=== PATIENT | male | born 1995 | race Caucasian/White ===

== ENCOUNTER 2020-03-30 18:18 | Emergency (ER) | payer SELFPAY ==
--- NOTE | 2020-03-30 18:41 | ED.DENTAL ---
HPI - Dental/Oral General Chief complaint: Dental/Oral Stated complaint: tooth pain Time Seen by Provider: 03/30/20 18:41 Source: patient and RN notes reviewed History of Present Illness HPI Narrative: Patient is a 25-year-old male that presents the urgent care with complaints of upper right dental pain. Patient states that it started last night and he believes he may have broke off the tooth . Patient states that he took 1 dose of his girlfriends old amoxicillin prescription as well as some Tylenol today. Patient states that it did seem to dull the pain a little bit but the pain is still there. Patient denies of any known swelling, fever, nausea, vomiting. No other acute complaints. No acute distress noted. Patient read the plan of care. Related Data Allergies Allergy/AdvReac Type Severity Reaction Status Date / Time amphetamine AdvReac Unknown Fatigued Verified 03/30/20 18:36 dextroamphetamine AdvReac Unknown Fatigued Verified 03/30/20 18:36 Review of Systems Review of Systems: Narrative: CONSTITUTIONAL: Denies fever, chills, or sweats. EYES: Denies visual changes, redness, or discharge. ENT: Denies rhinorrhea, congestion, sore throat, or otalgia. Reports of upper right dental pain CARDIOVASCULAR: Denies chest pain, palpitations, or edema. RESPIRATORY: Denies cough or dyspnea. GASTROINTESTINAL: Denies abdominal pain, nausea, vomiting, or diarrhea. GENITOURINARY: Denies dysuria or hematuria. SKIN: Denies rash or itching. MUSCULOSKELETAL: Denies back pain, joint pain, or myalgia. NEUROLOGIC: Denies headache, numbness, or weakness. All other systems reviewed are negative, except as documented in HPI. PMFSH Social History Social History (Updated 11/15/19 @ 13:41 by CAMMY Caballero) Smoking status: Current every day smoker Tobacco type: cigarettes Alcohol intake: current Substance use: never Gender identity (if verbalized by the patient): Male Comments At the time of my signature, I reviewed and agree with the nursing past medical, surgical, social, and family history. There is no relevant family history pertinent to the patient complaint. Exam Narrative: Exam Narrative: GENERAL: This is a well-nourished, well-developed patient, in no apparent distress. HEAD: normocephalic, atraumatic. EYES: PERRL. Sclera clear/white. Vision is grossly intact. EARS: External ears normal NOSE: External nose normal with no obvious nasal discharge THROAT: Mucous membranes moist, posterior pharynx clear. Posterior cusp avulsion fracture noted to tooth #2 without any obvious surrounding erythema or abscess NECK: Neck supple, non-tender without lymphadenopathy, masses or thyromegaly. SKIN: warm, intact with no suspicious lesions or rash, good texture and turgor. NEURO: awake, alert, and oriented to person, place and time. There were no obvious focal neurologic abnormalities. EXTREMITIES: No clubbing, cyanosis, or edema. Course Vital Signs Vital signs: Vital Signs Temperature 98.0 F 03/30/20 18:42 Pulse Rate 77 03/30/20 18:42 Respiratory Rate 16 03/30/20 18:42 Blood Pressure 141/78 H 03/30/20 18:42 Pulse Oximetry 100 03/30/20 18:42 Temperature 98.0 F 03/30/20 18:42 Pulse Rate 77 03/30/20 18:42 Respiratory Rate 16 03/30/20 18:42 Blood Pressure 141/78 H 03/30/20 18:42 Pulse Oximetry 100 03/30/20 18:42 Reviewed?patient is informed that they may have pre-hypertension or hypertension based on a blood pressure reading in the department. I recommend the patient call the primary care provider listed on their discharge instructions or a physician of their choice this week to arrange follow-up for further evaluation of possible pre-hypertension or hypertension. MDM - Dental/Oral MDM Narrative Medical decision making narrative: At this time, no necessary need for antibiotic treatment. Pain is likely caused from nerve exposure and pain medicine does not typically help that type of pain. Therefore pat
[2020-03-30 18:42] VITALS: BP 141/78; PULSE 77; RESP 16; TEMP 36.7; O2SAT 100
== END 2020-03-30 18:59 | disposition home or self-care (01) ==
PROVIDERS: Emergency Provider Nurse Practitioner Family
DX: K03.81 Cracked tooth (principal); F17.210 Nicotine dependence, cigarettes, uncomplicated
CPT/HCPCS: 99213; G0463

== ENCOUNTER 2020-05-02 16:12 | Emergency (ER) | payer SELFPAY ==
[2020-05-02 16:14] VITALS: BP 136/77; PULSE 95; RESP 18; TEMP 37.6; O2SAT 100
[2020-05-02] MEDS: TETANUS,DIPHTHERIA,AC PERTUSSIS ADULT (0.5 ML) BOOSTRIX IM (16:33)
[2020-05-02] MEDS: SILVER SULFADIAZINE 1% CR 50 GM JAR (*BKC) 1 APPLIC TOPICAL (16:33)
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
== END 2020-05-02 17:01 | disposition home or self-care (01) ==
PROVIDERS: Emergency Provider Emergency Medicine
DX: T22.231A Burn of second degree of right upper arm, initial encounter (principal); T31.0 Burns involving less than 10% of body surface; F17.210 Nicotine dependence, cigarettes, uncomplicated; Z23 Encounter for immunization; Y93.G2 Activity, grilling and smoking food; X03.0XXA Exposure to flames in controlled fire, not in building or structure, initial encounter
CPT/HCPCS: 16020; 90471; 90715; 99283; A9270

== ENCOUNTER 2020-06-21 09:26 | Emergency (ER) | payer SELFPAY ==
--- NOTE | ~2020-06-21 | XR_ITS ---
EXAMINATION: XR chest 1V portable DATE: 06/21/2020 10:29 INDICATION: Cough. Sore throat. Chest pain. TECHNIQUE: A single frontal view of the chest was obtained. COMPARISON: None. FINDINGS: The chest demonstrates clear lungs without pneumonia, pleural effusion, or pneumothorax. Th e heart size is normal. IMPRESSION: 1. No acute cardiopulmonary disease. Reviewed, dictated and finalized at location A.
[2020-06-21 09:31] VITALS: BP 139/84; PULSE 101; RESP 20; TEMP 37.7; O2SAT 99
[2020-06-21 09:48] VITALS: BP 128/82; PULSE 68; RESP 16; O2SAT 98
--- NOTE | 2020-06-21 09:49 | ECG_ITS ---
Measurements Intervals [place] Rate: 95 P: 61 [place]: 149 QRS: 58 QRSD: 92 T: -1 QT: 339 QTc: 427 Interpretive Statements SINUS RHYTHM BORDERLINE ST-T WAVE ABNORMALITY- ANT/INF LEADS BORDERLINE ECG Electronically Signed On 06-21-2020 10:02:56 CDT by Gregg Lara D.O.
[2020-06-21 10:05] LABS: Basophils Percent Auto 0.4 % (0.2-1.2); Eosinophils Absolute Auto 0.4 K/mm3 (0-0.3); Eosinophils Percent Auto 4.1 % (0-4.4); Hematocrit 48.1 % (42.0-52.0); Hemoglobin 16.4 g/dL (14.0-18.0); Immature Granulocyte Absolute 0.02 K/mm3 (0.00-0.031); Immature Granulocyte Percent A 0.2 % (0-0.5); Lymphocytes Absolute Auto 1.33 K/mm3 (0.9-3.2); Lymphocytes Percent Auto 14.7 % (18.3-44.2); Mean Corpuscular HGB Conc 34.1 g/dl (32-36); Mean Corpuscular Hemoglobin 30.1 pg (26-34); Mean Corpuscular Volume 88.3 fl (80-100); Mean Platelet Volume 9.6 fl (7.4-10.4); Monocytes Absolute Auto 0.7 K/mm3 (0.1-0.6); Monocytes Percent Auto 7.6 % (2.6-8.5); Neutrophils Absolute Auto 6.6 K/mm3 (1.3-6.7); Platelet Count Result 219 k/mm3 (150-375); Red Blood Count 5.45 M/mm3 (4.6-6.20); Red Cell Distribution Width 12.7 % (11.5-14.5); White Blood Count 9.1 K/mm3 (4.5-10.0)
[2020-06-21 10:15] LABS: Anion Gap 12.9 mmol/L (7-16); Blood Urea Nitrogen 11 mg/dL (9-20); Calcium 9.1 mg/dL (8.4-10.2); Carbon Dioxide 24 mmol/L (22-30); Chloride 103 mmol/L (98-107); Estimated CRCL calculation 126 ml/min; Estimated Glomerular Filt Rate > 60; Glucose 106 mg/dL (75-110); Potassium 3.9 mmol/L (3.4-5.0); Sodium 136 mmol/L (137-145)
--- NOTE | 2020-06-21 10:48 | ED.URI ---
HPI - URI/Sore Throat General Chief Complaint: Upper Respiratory Infection Stated Complaint: cough/st/pain to chest with cough Time Seen by Provider: 06/21/20 10:10 Source: patient Mode of arrival: ambulatory Limitations: no limitations History of Present Illness HPI Narrative: This is a 25-year-old male that presents the emergency department for cold symptoms since yesterday. Reports cough, congestion, and sore throat. Reports chest pain with coughing. Denies fever or shortness of breath. Related Data Home Medications Medication Instructions Recorded Confirmed No Home Medications 06/21/20 06/21/20 Allergies Allergy/AdvReac Type Severity Reaction Status Date / Time No Known Allergies Allergy Verified 06/21/20 09:34 Review of Systems Review of Systems: Narrative: CONSTITUTIONAL: Denies fever ENT: Reports rhinorrhea, congestion, sore throat CARDIOVASCULAR: Reports chest pain RESPIRATORY: Reports cough. Denies dyspnea. All systems reviewed & are unremarkable except as noted in HPI and below PMFSH Social History Social History Smoking status: Current every day smoker Tobacco type: cigarettes Alcohol intake: current Substance use: never Gender identity (if verbalized by the patient): Male Exam Narrative: Exam Narrative: GENERAL: Well-appearing, well-nourished, and in no acute distress. HEAD: Normocephalic, atraumatic. EYES: EOMI. ENT: Nares clear, no rhinorrhea or epistaxis. Mucous membranes moist. Oropharynx without tonsillar hypertrophy exudate or other lesions. Bilateral TMs pearly palacio non-bulging NECK: Supple. No adenopathy or masses. CHEST: Clear to auscultation. No respiratory distress. No wheezes rales or rhonchi HEART: Regular rate and rhythm. No murmur heard. Normal peripheral pulses. EXTREMITIES: Normal range of motion. No edema. SKIN: Warm, dry. Hypopigmented macules present on the upper chest and back NEURO: No focal deficits. Alert and oriented x3. PSYCH: Normal mood and affect Course Vital Signs Vital signs: Vital Signs Temperature 99.8 F H 06/21/20 09:31 Pulse Rate 101 H 06/21/20 09:31 Respiratory Rate 20 06/21/20 09:31 Blood Pressure 139/84 06/21/20 09:31 Pulse Oximetry 99 06/21/20 09:31 Temperature 99.8 F H 06/21/20 09:31 Pulse Rate 76 06/21/20 11:24 Respiratory Rate 17 06/21/20 11:24 Blood Pressure 132/74 06/21/20 11:24 Pulse Oximetry 97 06/21/20 11:24 MDM - URI/Sore Throat MDM Narrative Medical decision making narrative: Patient presents the emergency department for cold symptoms since yesterday. Patient is afebrile and nontoxic-appearing. CBC and metabolic panel without acute findings. Lactic acid is not elevated. Troponin is negative. Chest x-ray without acute findings. EKG is without concerning findings. Strep screen is negative. SARS-CoV-2 sent. Patient is stable and felt appropriate for further outpatient evaluation. Was instructed to follow-up with primary care doctor for results of coronavirus test. Also was instructed on importance of self isolating. Patient was given warnings to return to the ER Lab Data Attestation: I reviewed the patient's lab results. Result diagrams: 06/21/20 09:59 06/21/20 09:59 Labs: Lab Results 06/21/20 06/21/20 06/21/20 Range/Units 09:57 09:58 09:59 WBC 9.1 (4.5-10.0) K/mm3 RBC 5.45 (4.6-6.20) M/mm3 Hgb 16.4 (14.0-18.0) g/dL Hct 48.1 (42.0-52.0) % MCV 88.3 (80-100) fl MCH 30.1 (26-34) pg MCHC 34.1 (32-36) g/dl RDW 12.7 (11.5-14.5) % Plt Count 219 (150-375) k/mm3 MPV 9.6 (7.4-10.4) fl Immature Gran % (Auto) 0.2 (0-0.5) % Neut % (Auto) 73.0 (45.5-73.1) % Lymph % (Auto) 14.7 L (18.3-44.2) % [place] % (Auto) 7.6 (2.6-8.5) % Eos % (Auto) 4.1 (0-4.4) % Baso % (Auto) 0.4 (0.2-1.2) % Lymph # (Auto) 1.33 (0.9-3.2) K/mm3 [place]
[2020-06-21 10:57] LABS: Troponin I < 0.012 ng/mL (0.000-0.034)
[2020-06-21 11:24] VITALS: BP 132/74; PULSE 76; RESP 17; O2SAT 97
[2020-06-22 00:47] LABS: SARS-CoV-2 RNA PCR Negative
== END 2020-06-21 12:07 | disposition home or self-care (01) ==
PROVIDERS: Physician Assistant; Emergency Provider Emergency Medicine
DX: B34.9 Viral infection, unspecified (principal); Z20.828 Contact with and (suspected) exposure to other viral communicable diseases; F17.210 Nicotine dependence, cigarettes, uncomplicated
CPT/HCPCS: 36415; 71045; 80048; 83605; 84484; 85025; 87040; 87081; 87635; 87880; 93005; 99284; C9803; U0003

== ENCOUNTER 2021-09-08 15:11 | Emergency (ER) | payer OTHER, SELFPAY ==
--- NOTE | ~2021-09-08 | XR_ITS ---
EXAMINATION: XR sacrum coccyx min 2V DATE: 09/08/2021 15:40 INDICATION: Tailbone pain post fall TECHNIQUE: AP, angled AP and lateral views of the sacrum and coccyx were obtained. COMPARISON: None. FINDINGS: Alignment is normal. No fracture. Sacral arches are intact. Bilateral hip and sacroiliac joint spaces are normal. IMPRESSION: 1. No osseous abnormality. Reviewed, dictated and finalized at location A. IMPRESSION: 1. No osseous abnormality.
[2021-09-08 15:24] VITALS: BP 122/82; PULSE 62; RESP 16; TEMP 36.7; O2SAT 99
--- NOTE | 2021-09-08 15:25 | ED.BACK ---
HPI - Back Pain/Injury General Chief Complaint: Fall Stated Complaint: Tailbone Pain Time Seen by Provider: 09/08/21 15:45 Source: patient Mode of arrival: ambulatory Limitations: no limitations History of Present Illness HPI Narrative: Colin Naik is a 26 yo male with no prior medical history who comes to [facility] after a fall 4 days ago at work. He was mopping the floor and slid on the floor and came down on his coccyx and has had pain since then. He has been off for 3 days and try to go back to work today and states that the pain is too severe when he turns left or right to be able to work Related Data Allergies Allergy/AdvReac Type Severity Reaction Status Date / Time No Known Allergies Allergy Verified 09/08/21 15:29 Review of Systems Review of Systems: CONSTITUTIONAL: Denies fever, chills, sweats. EYES: Denies visual changes, redness, discharge. ENT: Denies rhinorrhea, congestion, sore throat, otalgia. CARDIOVASCULAR: Denies chest pain, palpitations, edema. RESPIRATORY: Denies dyspnea, wheezing, cough GASTROINTESTINAL: Denies abdominal pain, nausea, vomiting, diarrhea. GENITOURINARY: Denies dysuria, hematuria, abnormal discharge SKIN: Denies rash or itching. NEUROLOGIC: Denies numbness, or focal weakness. PSYCHIATRIC: Denies anxiety or depression. Has pain in coccyx upon moving left or right or trying to leaning back PMFSH Past Medical History Medical History (Updated 09/08/21 @ 16:15 by Su Reid CNP) No acute medical problems Family History Family History (Updated 09/08/21 @ 16:12 by Su Reid CNP) Other Hypertension Social History Social History (Updated 09/08/21 @ 16:12 by Su Reid CNP) Smoking status: Current every day smoker Tobacco type: e-cigarettes/vaping Additional smoking assessment comments: Stop smoking cigarettes now only vapes Alcohol intake: current Alcohol use details: SOCIALLY Substance use: never Gender identity (if verbalized by the patient): Male Comments At time of signature, I agree with nursing past medical, surgical, social and family history. There is no relevant family history pertinent to the presenting complaint. Exam Narrative: GENERAL: This is a well-nourished, well-developed patient, in moderate distress. HEAD: normocephalic, atraumatic. EYES: Sclera clear/white. Vision is grossly intact. EARS: External ears normal,. Hearing grossly intact. NOSE: External nose normal without nasal discharge, nares without redness, no rhinorrhea. THROAT: Mucous membranes moist, NECK: Neck supple, CARDIOVASCULAR: Regular rate and rhythm without murmurs, gallops, or rubs. RESPIRATORY: Clear to auscultation. Breath sounds equal bilaterally. No wheezes, rales, or rhonchi. GASTROINTESTINAL: Abdomen soft, non-tender, SKIN: warm, intact with no suspicious lesions or rash, good texture and turgor. NEURO: awake, alert, and oriented to person, place and time. There were no obvious focal neurologic abnormalities. Steady gait EXTREMITIES: Normal range of motion. 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
== END 2021-09-08 16:25 | disposition home or self-care (01) ==
PROVIDERS: Emergency Provider Nurse Practitioner
DX: S30.0XXA Contusion of lower back and pelvis, initial encounter (principal); W01.0XXA Fall on same level from slipping, tripping and stumbling without subsequent striking against object, initial encounter; Y99.0 Civilian activity done for income or pay; F17.200 Nicotine dependence, unspecified, uncomplicated
CPT/HCPCS: 72220; 99213; G0463

== ENCOUNTER 2021-09-24 10:43 | Emergency (ER) | payer MEDICAID, SELFPAY ==
[2021-09-24 10:55] VITALS: BP 132/75; PULSE 82; RESP 16; TEMP 37; O2SAT 98
--- NOTE | 2021-09-24 11:53 | ED.URI ---
HPI - URI/Sore Throat General Chief Complaint: Upper Respiratory Infection Stated Complaint: i feel sick Time Seen by Provider: 09/24/21 11:53 Source: patient Mode of arrival: ambulatory Limitations: no limitations History of Present Illness HPI Narrative: Patient is a 26-year-old male complaining of sore throat, nasal congestion, headache and cough x3 days. Patient states that his kids have similar symptoms. Patient denies any throat swelling, dysphagia, fever or chills. Patient denies any chest pain, shortness of breath, abdominal pain, nausea, vomiting, diarrhea. Patient also requesting 2 days off work. Related Data Allergies Allergy/AdvReac Type Severity Reaction Status Date / Time No Known Allergies Allergy Verified 09/08/21 15:29 Review of Systems Review of Systems: All systems reviewed & are unremarkable except as noted in HPI and below Constitutional: Constitutional: Reports as per HPI PMFSH Past Medical History Medical History No acute medical problems Family History Family History Other Hypertension Social History Social History Smoking status: Current every day smoker Tobacco type: e-cigarettes/vaping Additional smoking assessment comments: Stop smoking cigarettes now only vapes Alcohol intake: current Alcohol use details: SOCIALLY Substance use: never Gender identity (if verbalized by the patient): Male Exam Const: General: cooperative, healthy appearing, comfortable, no acute distress, well developed, alert and awake; No confusion Orientation/consciousness: oriented to person, oriented to place, oriented to time, patient oriented x3 and No confusion Limitations: no limitations HENMT: Head: normal to inspection, normocephalic and atraumatic Ears: hearing grossly normal bilaterally, TM normal on the right and TM normal on the left General nose exam: Normal external nose present, Normal nares present and No nasal discharge present Face and sinus: normal facial exam Mouth: Yes Normal oral and palatal mucosa present, Yes lip normal, Yes tongue normal and Yes oropharynx normal Throat: posterior oropharynx normal, tonsils normal and uvula midline Eyes: General: appearance normal, both eyes and all related structures Pupils: Equal, round and reactive pupils present EOM: EOMs intact bilaterally Neck: Neck: normal visual inspection, full ROM, no lymphadenopathy and no meningeal signs Chest: Chest palpation & inspection: normal inspection of the chest Resp: Effort & Inspection: normal respiratory effort, able to speak in complete sentences, no respiratory distress and not tachypneic Auscultation: clear to auscultation bilaterally, no crackles, no rales, no rhonchi and no wheezes Cardio: Rate: regular rate Rhythm: regular rhythm GI: Inspection: normal to inspection GI Palp: No abdominal tenderness, Yes Soft to palpation, No Tenderness to palpation present (GI), No Guarding due to palpation present (GI), No Rigid due to palpation and No Rebound tenderness present Auscultation: normal bowel sounds : General: Yes no CVA tenderness Back/Spine/Pelvis: Back: no CVA tenderness Skin: General skin exam: normal color, no rashes or lesions noted, elasticity normal and turgor normal Neuro: General: oriented to person, oriented to place, oriented to time, patient oriented x3, tone normal, moves all extremities, Normal light touch and pain sensation, no meningeal signs, no focal motor deficits, CN's II-XI intact bilaterally and No confusion Cranial nerves: Yes Equal, round and reactive pupils present Speech: No Abnormal speech present Sensory Exam: No Sensory deficit (Neuro) Extrem: General: normal to inspection, full ROM and capillary refill normal Psych: Appearance: grossly normal and well kempt Mental Status: mental
== END 2021-09-24 13:06 | disposition home or self-care (01) ==
PROVIDERS: Emergency Provider Emergency Medicine
DX: J06.9 Acute upper respiratory infection, unspecified (principal); J02.9 Acute pharyngitis, unspecified; F17.290 Nicotine dependence, other tobacco product, uncomplicated
CPT/HCPCS: 87081; 87880; 99283

== ENCOUNTER 2021-12-10 05:33 | Emergency (ER) | payer OTHER, SELFPAY ==
[2021-12-10 05:35] VITALS: BP 147/95; PULSE 93; RESP 18; TEMP 36.6; O2SAT 100
[2021-12-10 05:48] VITALS: PULSE 88
--- NOTE | 2021-12-10 06:33 | ECG_ITS ---
Measurements Intervals [place] Rate: 73 P: 61 [place]: 158 QRS: 62 QRSD: 92 T: 38 QT: 341 QTc: 377 Interpretive Statements SINUS RHYTHM BORDERLINE T WAVE ABNORMALITY- ANT/INF LEADS BASELINE ARTIFACT- V4 BORDERLINE ECG Electronically Signed On 12-10-2021 7:54:53 MOLD FILLING OPERATOR by Gregg Lara D.O.
--- NOTE | 2021-12-10 06:38 | ED.GENADULT ---
HPI - General Adult General Chief complaint: Unspecified <Tomas Carcamo MD - Last Filed: 12/10/21 06:41> Stated complaint: I woke up and felt like I was gonna pass out <Tomas Carcamo MD - Last Filed: 12/10/21 06:41> Time Seen by Provider: 12/10/21 06:26 <Tomas Carcamo MD - Last Filed: 12/10/21 06:41> History of Present Illness HPI narrative: Patient a 26-year-old gentleman who presents the emergency department with chief complaint of I cannot sleep, I feel like I was going to pass out. Patient states that he felt he was about to fall asleep but then woke back up the patient states that he has been awake for the whole evening. The patient reports has been working a lot at a new job and also reports that he has been under little more stress. Patient states he feels nauseated reports that he felt as though he was going to pass out even though he did not actually pass out this evening. Patient denies chest pain denies shortness of breath denies diarrhea denies abdominal pain. <Tomas Carcamo MD - Last Filed: 12/10/21 06:41> Related Data Allergies/adverse reactions: Allergies Allergy/AdvReac Type Severity Reaction Status Date / Time No Known Allergies Allergy Verified 12/10/21 05:38 <Tomas Carcamo MD - Last Filed: 12/10/21 06:41> Review of Systems Review of Systems: A 10 system review of systems was completed on the patient and is negative except for what is stated in the HPI. Nursing and ancillary documentation was reviewed. <Tomas Carcamo MD - Last Filed: 12/10/21 06:41> [facility] Past Medical History Medical History: Medical History No acute medical problems <Tomas Carcamo MD - Last Filed: 12/10/21 06:41> Family History Family History: Family History Other Hypertension <Tomas Carcamo MD - Last Filed: 12/10/21 06:41> Social History Social History: Social History Smoking status: Current every day smoker Tobacco type: e-cigarettes/vaping Additional smoking assessment comments: Stop smoking cigarettes now only vapes Alcohol intake: current Alcohol use details: SOCIALLY Substance use: never Gender identity (if verbalized by the patient): Male <Tomas Carcamo MD - Last Filed: 12/10/21 06:41> Exam Narrative: GENERAL: Well-appearing, well-nourished, and in no acute distress. HEAD: Normocephalic, atraumatic. EYES: PERRLA and EOMI. ENT: Nares clear, no rhinorrhea or epistaxis. Mucous membranes moist. NECK: Supple. CHEST: Clear to auscultation. No respiratory distress. HEART: Regular rate and rhythm. No murmur heard. Normal peripheral pulses. ABDOMEN: Soft, nontender, nondistended, normal active bowel sounds. EXTREMITIES: Normal range of motion. No edema. SKIN: Warm, dry, no rash. NEURO: No focal deficits. Alert and oriented x3. PSYCH: Normal mood and affect. <Tomas Carcamo MD - Last Filed: 12/10/21 06:41> Course Vital Signs Vital signs: Vital Signs Temperature 36.6 C 12/10/21 05:35 Pulse Rate 93 12/10/21 05:35 Respiratory Rate 18 12/10/21 05:35 Blood Pressure 147/95 H 12/10/21 05:35 Pulse Oximetry 100 12/10/21 05:35 Temperature 36.6 C 12/10/21 05:35 Pulse Rate 88 12/10/21 05:48 Respiratory Rate 18 12/10/21 05:35 Blood Pressure 147/95 H 12/10/21 05:35 Pulse Oximetry 100 12/10/21 05:35 <Tomas Carcamo MD - Last Filed: 12/10/21 06:41> Vital Signs Temperature 36.6 C 12/10/21 05:35 Pulse Rate 93 12/10/21 05:35 Respiratory Rate 18 12/10/21 05:35 Blood Pressure 147/95 H 12/10/21 05:35 Pulse Oximetry 100 12/10/21 05:35 Temperature 36.6 C 12/10/21 05:35 Pulse Rate 88
[2021-12-10] MEDS: SODIUM CHLORIDE 0.9% IV 1,000 ML 999 ML IV CONT (06:58)
[2021-12-10] MEDS: diphenhydrAMINE HCl INJ 50 MG/ML VIAL IV PUSH (06:59)
[2021-12-10] MEDS: PROCHLORPERAZINE EDISYLATE 10 MG/2 ML VIAL IV PUSH (06:59)
--- NOTE | 2021-12-10 07:04 | PC.NURSE ---
pt agrees to original meds and has ride home. no zofran given. pt not cooperative with orthostatic vs at this time
[2021-12-10 07:22] LABS: Basophils Percent Auto 0.5 % (0.2-1.2); Eosinophils Absolute Auto 0.2 K/mm3 (0-0.3); Eosinophils Percent Auto 2.6 % (0-4.4); Hemoglobin 15.4 g/dL (14.0-18.0); Immature Granulocyte Absolute 0.02 K/mm3 (0.00-0.031); Immature Granulocyte Percent A 0.3 % (0-0.5); Lymphocytes Absolute Auto 2.11 K/mm3 (0.9-3.2); Lymphocytes Percent Auto 27.2 % (18.3-44.2); Mean Corpuscular HGB Conc 34.2 g/dl (32-36); Mean Corpuscular Hemoglobin 30.2 pg (26-34); Mean Corpuscular Volume 88.2 fl (80-100); Mean Platelet Volume 9.8 fl (7.4-10.4); Monocytes Absolute Auto 0.6 K/mm3 (0.1-0.6); Monocytes Percent Auto 7.6 % (2.6-8.5); Neutrophils Absolute Auto 4.8 K/mm3 (1.3-6.7); Neutrophils Percent Auto 61.8 % (45.5-73.1); Platelet Count Result 248 k/mm3 (150-375); White Blood Count 7.8 K/mm3 (4.5-10.0)
[2021-12-10 07:25] LABS: Add Urine Microscopic? NO; Appearance Urine Clear (Clear); Bilirubin Urine Negative (Negative); Blood Urine Negative (Negative); Color Urine Straw (Yellow); Glucose Urine UA Negative (Negative); Ketones Urine Negative (Negative); Leukocyte Esterase Ur Negative LEU/UL (Negative); Nitrate Urine Negative (Negative); Protein Urine Negative (Negative); Specific Grav Ur 1.009 (1.001-1.035); Urobilinogen Urine Negative mg/dL (<2.0)
--- NOTE | 2021-12-10 07:30 | PC.NURSE ---
Per X-ray, pt refused a chest x-ray and asked them to, come back in an hour .
[2021-12-10 07:36] LABS: Alanine Aminotransferase 61 U/L (4-50); Albumin Level 4.7 g/dL (3.5-5.1); Alkaline Phosphatase 80 U/L (38-126); Anion Gap 12 mmol/L (8-16); Aspartate Amino Transferase 39 U/L (17-59); Bilirubin,Total 0.5 mg/dL (0.2-1.3); Blood Urea Nitrogen 11 mg/dL (9-20); Calcium 9.3 mg/dL (8.4-10.2); Carbon Dioxide 24 mmol/L (22-30); Chloride 102 mmol/L (98-107); Estimated CRCL calculation 119 ml/min; Estimated Glomerular Filt Rate > 60; Glucose 129 mg/dL (65-110); Magnesium 2.3 mg/dL (1.6-2.3); Potassium 3.3 mmol/L (3.4-5.0); Sodium 138 mmol/L (137-145)
--- NOTE | 2021-12-10 08:10 | PC.NURSE ---
This nurse called x-ray and notified them the x-ray could be completed due to pt compliance at this time
[2021-12-10 08:19] VITALS: BP 108/57; PULSE 57; RESP 16; O2SAT 98
== END 2021-12-10 08:25 | disposition home or self-care (01) ==
PROVIDERS: Emergency Medicine; Emergency Provider Emergency Medicine
DX: R53.83 Other fatigue (principal)
CPT/HCPCS: 36415; 80053; 81003; 83735; 85025; 93005; 96361; 96374; 96375; 99284; J0780; J1200; J7030

== ENCOUNTER 2021-12-18 12:32 | Emergency (ER) | payer OTHER, SELFPAY ==
[2021-12-18 12:34] VITALS: BP 133/69; PULSE 68; RESP 16; TEMP 36.8; O2SAT 99
--- NOTE | 2021-12-18 13:37 | ED.URI ---
HPI - URI/Sore Throat General Chief Complaint: Upper Respiratory Infection Stated Complaint: villegas/cough/congestion Time Seen by Provider: 12/18/21 13:12 Source: patient and RN notes reviewed Mode of arrival: ambulatory Limitations: no limitations History of Present Illness HPI Narrative: Patient presents today complaining of 4 to 5-day history of dry cough and sore throat and 2-day history of diarrhea. Patient has tried no medication for symptoms prior to arrival. Son had some vomiting 2 to 3 days ago, had a negative COVID-19 test at his PCPs and was diagnosed with a stomach bug . MD elicited complaint: cough and sore throat Related Data Allergies Allergy/AdvReac Type Severity Reaction Status Date / Time No Known Allergies Allergy Verified 12/18/21 12:59 Review of Systems Review of Systems: CONSTITUTIONAL: Denies body aches, fever, chills, or sweats. EYES: Denies visual changes, redness, or discharge. ENT: Denies rhinorrhea, congestion, or otalgia.+ Sore throat CARDIOVASCULAR: Denies chest pain, palpitations, or edema. RESPIRATORY: Denies dyspnea.+ Cough GASTROINTESTINAL: Denies abdominal pain, nausea, vomiting,.+ Diarrhea GENITOURINARY: Denies dysuria or hematuria. SKIN: Denies rash, itching, or wounds. MUSCULOSKELETAL: Denies back pain, joint pain, or myalgia. NEUROLOGIC: Denies headache, numbness, tingling, or weakness. PSYCH: Denies depression or anxiety. [facility] Past Medical History Medical History No acute medical problems Family History Family History Other Hypertension Social History Social History Smoking status: Current every day smoker Tobacco type: e-cigarettes/vaping Additional smoking assessment comments: Stop smoking cigarettes now only vapes Alcohol intake: current Alcohol use details: SOCIALLY Substance use: never Gender identity (if verbalized by the patient): Male Comments At time of signature, I have reviewed and agree with nursing past medical, surgical, social and family history unless otherwise noted. Please see nursing chart for further information. There is no relevant family history pertinent to the presenting complaint Exam Narrative: GENERAL: Well-appearing, well-nourished, and in no acute distress. HEAD: Normocephalic, atraumatic. EYES: EOMI. No redness or drainage. Conjunctivae normal. ENT: Mucous membranes pink and moist. Nares clear. No rhinorrhea. TMs normal bilaterally. Throat mildly erythematous without edema or exudate. Uvula midline. NECK: Normal AROM. Supple. No lymphadenopathy. CHEST: No respiratory distress. Clear to auscultation. HEART: Regular rate and rhythm. No murmur appreciated. Normal peripheral pulses. ABDOMEN: Soft, nontender, nondistended, normal active bowel sounds. EXTREMITIES: Normal range of motion. No edema. SKIN: Warm, dry, no rash. Capillary refill normal. Normal skin turgor. NEURO: No focal deficits. Alert and oriented x3. Gait steady. PSYCH: Normal affect. No signs of depression or anxiety. Course Course Level of Care: Express Care Visit Vital Signs Vital signs: Vital Signs Temperature 98.2 F 12/18/21 12:34 Pulse Rate 68 12/18/21 12:34 Respiratory Rate 16 12/18/21 12:34 Blood Pressure 133/69 12/18/21 12:34 Pulse Oximetry 99 12/18/21 12:34 Temperature 98.2 F 12/18/21 12:34 Pulse Rate 68 12/18/21 12:34 Respiratory Rate 16 12/18/21 12:34 Blood Pressure 133/69 12/18/21 12:34 Pulse Oximetry 99 12/18/21 12:34 Reviewed. Pt has been instructed to follow up with his PCP regarding his elevated blood pressure today. MDM - URI/Sore Throat Differential Diagnosis Differential diagnosis: Likely upper respiratory infection, viral infection, pharyngitis and other (COVID-19) Lab Data Attestation: I reviewed the patien
== END 2021-12-18 14:15 | disposition home or self-care (01) ==
PROVIDERS: Emergency Provider Nurse Practitioner
DX: B34.9 Viral infection, unspecified (principal); Z20.822 Contact with and (suspected) exposure to COVID-19; F17.200 Nicotine dependence, unspecified, uncomplicated
CPT/HCPCS: 87426; 99213; C9803; G0463

== ENCOUNTER 2022-08-19 12:58 | Emergency (ER) | payer OTHER, SELFPAY ==
--- NOTE | ~2022-08-19 | XR_ITS ---
EXAMINATION: XR chest 2V 08/19/2022 14:06 INDICATION: Chest pain PROCEDURE: 2 view chest COMPARISON: 06/21/2020 FINDINGS: The lungs are clear. The cardiomediastinal silhouette is within normal limits. There are no pleural effusions. There is no pneumothorax suspected. IMPRESSION: 1: NO ACUTE CARDIOPULMONARY DISEASE. Reviewed, dictated and finalized at location A.
--- NOTE | 2022-08-19 12:59 | ECG_ITS ---
Measurements Intervals [place] Rate: 77 P: 60 ND: 151 QRS: 51 QRSD: 98 T: 45 QT: 337 QTc: 382 Interpretive Statements SINUS RHYTHM NONSPECIFIC T-WAVE ABNORMALITY- ANT/INF LEADS BORDERLINE ECG COMPARED TO ECG 12/10/2021 06:47:05 NO SIGNIFICANT CHANGES Electronically Signed On 08-19-2022 13:54:08 CDT by Gregg Lara D.O.
[2022-08-19 13:04] VITALS: BP 137/83; PULSE 77; RESP 16; TEMP 36.6; O2SAT 99
--- NOTE | 2022-08-19 13:18 | ED.CHESTPAIN ---
HPI - Chest Pain General Chief Complaint: Chest Pain Stated Complaint: chest pain Time Seen by Provider: 08/19/22 13:14 History of Present Illness HPI narrative: 27-year-old male presented emergency room complaints of constant chest pain for 6 months. Patient states the pain is worse when he stretches his arms behind his back. Reportedly has seen a interactive producer back in April, states he had an echo and a treadmill test that were both negative. Patient states he did not follow-up with a interactive producer following those test. Patient denies any alleviating or aggravating factors. Denies any shortness of breath difficulty breathing dizziness. Denies drug use. Patient states that he does smoke and vape. Related Data Allergies Allergy/AdvReac Type Severity Reaction Status Date / Time No Known Allergies Allergy Verified 12/18/21 12:59 Review of Systems Review of Systems: CONSTITUTIONAL: Denies fever, chills, or sweats. EYES: Denies visual changes, redness, or discharge. ENT: Denies rhinorrhea, congestion, sore throat, or otalgia. CARDIOVASCULAR: Reports chest pain RESPIRATORY: Denies cough or dyspnea. GASTROINTESTINAL: Denies abdominal pain, nausea, vomiting, or diarrhea. GENITOURINARY: Denies dysuria or hematuria. SKIN: Denies rash or itching. MUSCULOSKELETAL: Denies back pain, joint pain, or myalgia. NEUROLOGIC: Denies headache, numbness, dizziness, or weakness. PSYCHIATRIC: Denies anxiety or depression. PMFSH Past Medical History Medical History No acute medical problems Family History Family History Other Hypertension Social History Social History Smoking status: Current every day smoker Tobacco type: e-cigarettes/vaping Additional smoking assessment comments: Stop smoking cigarettes now only vapes Alcohol intake: current Alcohol use details: SOCIALLY Substance use: never Gender identity (if verbalized by the patient): Male Exam Narrative: GENERAL: Well-appearing, well-nourished, no physical limitations, and in no acute distress. HEAD: Normocephalic, atraumatic. EYES: Conjunctivae normal, PERRLA and EOMI. NECK: Supple. CHEST: Clear to auscultation. No respiratory distress. No wheezes rales or rhonchi. No tenderness. HEART: Regular rate and rhythm. No murmur heard. Normal peripheral pulses. EXTREMITIES: Normal range of motion. No edema. No clubbing or cyanosis SKIN: Warm, dry, no rash. No noted wounds NEURO: No focal deficits. Alert and oriented x3. MAEW. CN's II-XI intact bilaterally, normal gait PSYCH: Cooperative. Normal mood and affect. Course Vital Signs Vital signs: Vital Signs Temperature 36.6 C 08/19/22 13:04 Pulse Rate 77 08/19/22 13:04 Respiratory Rate 16 08/19/22 13:04 Blood Pressure 137/83 08/19/22 13:04 Pulse Oximetry 99 08/19/22 13:04 Oxygen Delivery Room Air 08/19/22 13:04 Temperature 36.6 C 08/19/22 13:04 Pulse Rate 77 08/19/22 13:04 Respiratory Rate 16 08/19/22 13:04 Blood Pressure 137/83 08/19/22 13:04 Pulse Oximetry 99 08/19/22 13:04 Oxygen Delivery Room Air 08/19/22 13:04 MDM - Chest Pain MDM Narrative Medical decision making narrative: 27-year-old male came the emergency room complaining of chest pain for 6 months. Exam showed no evidence of volume overload. EKG showed no signs of acute ischemia. Single troponin was negative. Well score was a 0. Chest x-ray shows no acute cardiopulmonary disease. Heart score is a 0. Will have patient follow-up with primary care physician and follow-up with his interactive producer. Lab Data Result diagrams: 08/19/22 13:25 08/19/22 13:25 Labs: Lab Results 08/19/22 08/19/22 08/19/22 Range/Units 13:25 13:25 13:25 WBC 7.0 (4.5-10.0) K/mm3 RBC 5.07 (4.6-6.20) M/mm3 Hgb 15.3 (14
[2022-08-19 13:39] LABS: Basophils Percent Auto 0.4 % (0.2-1.2); Eosinophils Absolute Auto 0.3 K/mm3 (0-0.3); Hematocrit 45.4 % (42.0-52.0); Hemoglobin 15.3 g/dL (14.0-18.0); Immature Granulocyte Absolute 0.02 K/mm3 (0.00-0.031); Immature Granulocyte Percent A 0.3 % (0-0.5); Lymphocytes Absolute Auto 2.25 K/mm3 (0.9-3.2); Lymphocytes Percent Auto 32.2 % (18.3-44.2); Mean Corpuscular HGB Conc 33.7 g/dl (32-36); Mean Corpuscular Hemoglobin 30.2 pg (26-34); Mean Corpuscular Volume 89.5 fl (80-100); Mean Platelet Volume 9.6 fl (7.4-10.4); Monocytes Absolute Auto 0.4 K/mm3 (0.1-0.6); Monocytes Percent Auto 5.3 % (2.6-8.5); Neutrophils Percent Auto 57.8 % (45.5-73.1); Platelet Count Result 219 k/mm3 (150-375); Red Blood Count 5.07 M/mm3 (4.6-6.20); Red Cell Distribution Width 12.4 % (11.5-14.5)
[2022-08-19 13:55] LABS: Alanine Aminotransferase 45 U/L (6-50); Albumin Level 4.7 g/dL (3.5-5.1); Alkaline Phosphatase 77 U/L (38-126); Anion Gap 15 mmol/L (8-16); Aspartate Amino Transferase 32 U/L (17-59); Bilirubin,Total 0.5 mg/dL (0.2-1.3); Blood Urea Nitrogen 12 mg/dL (9-20); Calcium 9.2 mg/dL (8.4-10.2); Carbon Dioxide 22 mmol/L (22-30); Chloride 103 mmol/L (98-107); Estimated CRCL calculation 126 ml/min; Estimated Glomerular Filt Rate > 60; Glucose 154 mg/dL (65-110); Lipase 82 U/L (23-300); Potassium 3.9 mmol/L (3.4-5.0); Prothrombin Time 12.9 Seconds (11.1-14.7); Sodium 140 mmol/L (137-145)
[2022-08-19 13:56] LABS: Partial Thromboplastin Time 29.3 SECONDS (22.3-36.8)
[2022-08-19 13:58] LABS: D Dimer < 0.27 ug/mL (<0.48)
[2022-08-19 14:02] LABS: Troponin I < 0.012 ng/mL (0.000-0.034)
[2022-08-19 15:16] VITALS: BP 111/82; PULSE 76; RESP 16; TEMP 36.6; O2SAT 99
== END 2022-08-19 15:15 | disposition home or self-care (01) ==
LOC: ANHED 15:22
PROVIDERS: Emergency Medicine; Emergency Provider Nurse Practitioner Family
DX: R07.9 Chest pain, unspecified (principal)
CPT/HCPCS: 36415; 71046; 80053; 83690; 84484; 85025; 85380; 85610; 85730; 93005; 99284

== ENCOUNTER 2023-06-06 22:04 | Emergency (ER) | payer OTHER, SELFPAY ==
[2023-06-06 22:14] VITALS: BP 150/95; PULSE 79; RESP 18; TEMP 36.8; O2SAT 97
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
[2023-06-06 23:09] VITALS: BP 145/89; PULSE 68; RESP 18; O2SAT 99
== END 2023-06-06 23:11 | disposition home or self-care (01) ==
PROVIDERS: Emergency Provider Physician Assistant
DX: S16.1XXA Strain of muscle, fascia and tendon at neck level, initial encounter (principal); F17.290 Nicotine dependence, other tobacco product, uncomplicated; W19.XXXA Unspecified fall, initial encounter
CPT/HCPCS: 99283

== ENCOUNTER 2023-10-31 10:32 | Emergency (ER) | payer OTHER, SELFPAY ==
--- NOTE | 2023-10-31 13:02 | ED.DENTAL ---
HPI - Dental/Oral General Chief complaint: Dental/Oral Stated complaint: tooth abcess Time Seen by Provider: 10/31/23 12:41 Source: patient, RN notes reviewed and old records reviewed Mode of arrival: ambulatory Limitations: no limitations History of Present Illness HPI Narrative: This is a 28 year old male who presents for evaluation of a tooth abscess. Patient states 1 month ago he developed left upper molar pain. He was started on penicillin for a dental abscess. He states his symptoms improved after completing his antibiotics. He states he noticed swelling to left upper molar 3 days ago. Today he noticed there was an area that drained small amount of pus. Related Data Allergies Allergy/AdvReac Type Severity Reaction Status Date / Time No Known Allergies Allergy Verified 10/31/23 12:56 Review of Systems Review of Systems: All systems reviewed & are unremarkable except as noted in HPI and below PMFSH Past Medical History Medical History No acute medical problems Family History Family History Other Hypertension Social History Social History Smoking status: Current every day smoker Tobacco type: e-cigarettes/vaping Additional smoking assessment comments: Stop smoking cigarettes now only vapes Alcohol intake: current Alcohol use details: SOCIALLY Substance use: never Living arrangements: with family Gender identity (if verbalized by the patient): Male Exam Const: General: no acute distress and alert Nutritional Appearance: well nourished Orientation/consciousness: patient oriented x3 HENMT: Head: normal to inspection Mouth: Yes Normal oral and palatal mucosa present, Yes lip normal and Yes moist mucous membranes Teeth and gingiva: abnormal tooth and associated gingiva (broken tooth 15, mild swelling without fluctuances, along hard palate ulc) Throat: posterior oropharynx normal and uvula midline Eyes: EOM: EOMs intact bilaterally Neck: Neck: normal visual inspection Chest: Chest palpation & inspection: normal inspection of the chest Resp: Effort & Inspection: normal respiratory effort Skin: General skin exam: normal color Rashes: no rashes Wounds: no wounds Neuro: General: patient oriented x3, moves all extremities and CN's II-XI intact bilaterally Extrem: General: normal to inspection Psych: Mental Status: mental status grossly normal Affect: normal affect Attitude: cooperative Course Reevaluation(s) Reevaluation #1: I discussed with patient plan to discharge with oral antibiotic prescription. He states he has appointment with dentist on Wednesday. Date: 10/31/23 Time: 13:03 MDM - Dental/Oral Differential Diagnosis Differential diagnosis: Likely gingival abscess, dental caries, toothache, dental abscess, fracture of tooth and aphthous ulcer Discharge Plan Discharge Clinical Impression: Dental abscess Patient Disposition: Home, Self-Care Condition: Stable Instructions: Antibiotic Form, Dental Abscess (ED) Additional Instructions: Follow up with your dentist on wednesday. Take antibiotics to completion. It is important that you see a dentist. Prescriptions: New amoxicillin-pot clavulanate 875-125 mg tablet 1 tablet PO Q12H Qty: 20 0RF No Action cyclobenzaprine 10 mg tablet 10 mg PO HS PRN (Reason: muscle spasm) Qty: 14 0RF Follow-up/Referrals: Dental Referral Line [Outside] [facility] [Outside] [facility] [Outside] PHYSICIAN,SIGNAL FITTER [Primary Care Provider] - Stand Alone Forms: Work/School Release IP
== END 2023-10-31 13:41 | disposition home or self-care (01) ==
PROVIDERS: Emergency Provider General Practice
DX: K04.7 Periapical abscess without sinus (principal); F17.290 Nicotine dependence, other tobacco product, uncomplicated
CPT/HCPCS: 99283

== ENCOUNTER 2024-08-26 23:31 | Emergency (ER) | payer OTHER, SELFPAY ==
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
[2024-08-26 23:35] VITALS: BP 141/78; PULSE 84; RESP 15; TEMP 37; O2SAT 98
[2024-08-27 06:10] VITALS: BP 117/80; PULSE 62; TEMP 36.4; O2SAT 99
[2024-08-27] MEDS: HYDROcodone/acetaminophen (*CRX) 7.5-325 MG TABLET 1 TAB PO (06:17)
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
[2024-08-27] MEDS: IBUPROFEN 600 MG TABLET (06:55)
[2024-08-27 07:43] VITALS: BP 114/70; PULSE 60; RESP 18; TEMP 36.5; O2SAT 100
== END 2024-08-27 09:52 | disposition left against medical advice (07) ==
PROVIDERS: Emergency Provider Emergency Medicine
DX: S62.324A Displaced fracture of shaft of fourth metacarpal bone, right hand, initial encounter for closed fracture (principal); F17.290 Nicotine dependence, other tobacco product, uncomplicated; Y04.0XXA Assault by unarmed brawl or fight, initial encounter
CPT/HCPCS: 73130; 99283; A9270